=== PATIENT | female | born 1990 | race Caucasian/White ===

== ENCOUNTER → 2020-08-18 | Emergency (ER) | payer OTHER, MEDICAID ==
[~2020-08-18] VITALS: Ht 162.6 cm; Wt 102.3 kg
[~2020-08-18] MED LIST: DICLOFENAC SODI50 MG PO; PROZAC20 MG
[2020-08-18 07:20] VITALS: BP 133/89; Ht 162.6 cm; Wt 102.3 kg
[2020-08-18 07:44] LABS: HEMATOCRIT 32.9 % (36.0-48.0); HEMOGLOBIN 10.8 g/dL (12-16); MCH 28.1 pg (26.0-34.0); MCHC 32.8 g/dL (31.0-37.0); MCV 85.7 fL (80.0-100.0); MEAN PLATELET VOLUME 9.4 fL (7.4-10.4); PLATELET COUNT 270 10x3/uL (130-400); RBC 3.84 10x6/uL (4.00-5.40); RDW 13.4 % (11.5-14.5); WBC 11.3 10x3/uL (4.8-10.8)
[2020-08-18 07:52] LABS: CALC OSMOLALITY 272 mosm/kg (275-300); CALCIUM 8.7 mg/dL (8.5-10.1); CARBON DIOXIDE 23.5 mmol/L (21.0-32.0); CHLORIDE - SERUM 104 mmol/L (98-107); CREATININE - SERUM 0.6 mg/dL (0.6-1.3); GLUCOSE 102 mg/dL (74-106); POTASSIUM - SERUM 3.5 mmol/L (3.5-5.1); SODIUM 137 mmol/L (136-145); UREA NITROGEN 11 mg/dL (7-18); eGFR NON AFRICAN AMERICAN > 90 mL/min (90-120)
[2020-08-18 07:59] LABS: ALBUMIN 3.2 g/dL (3.4-5.0); ALKALINE PHOSPHATASE 74 U/L (30-120); ALT (SGPT) 18 U/L (10-68); BILIRUBIN - TOTAL 0.16 mg/dL (0.2-1.3); PROTEIN - SERUM 7.2 g/dL (6.4-8.2)
[2020-08-18 08:07] LABS: LYMPHOCYTES 23 % (15-50); MONOCYTES 2 % (2-11); NEUTROPHILS 75 % (40-80); PLATELET ESTIMATE NORMAL
--- NOTE | 2020-08-18 15:39 | NUR ---
CONTACTED DR BA FOR PT DISPOSITION ORDERS RE ADMIT V DISCHARGE STATUS. SHE WILL PUT IN CHART.
--- NOTE | 2020-08-18 16:24 | NUR ---
1602 - PT WAS HELF IN PACU FOR LACK OF ORDERS, NO REASON CODE PERTAINS
--- NOTE | 2020-08-18 19:33 | NUR ---
1732 PT'S RIDE IS HERE, RELEASED IN WC TO CAR.
--- NOTE | 2020-08-21 09:13 | OP ---
PATIENT NAME: TORI HUNT MEDICAL RECORD: [id number] :88 LOCATION:[facility] ADMISSION DATE: SURGEON: CARMEN RAE DO DATE OF OPERATION: 08/18/2020 PREOPERATIVE DIAGNOSES: Incomplete , hemorrhage. POSTOPERATIVE DIAGNOSES: Incomplete , hemorrhage. PRIMARY SURGEON: Carmen Rae DO ANESTHESIA: LMA. PROCEDURE: Dilation and curettage with suction. FINDINGS: Uterus approximately 7 cm in size, moderate products of conception, anteverted uterus, cervical os open. SPECIMENS: Products of conception. ESTIMATED BLOOD LOSS: Less than 20 mL. INTRAVENOUS FLUIDS: Per anesthesia. COMPLICATIONS: None. PROCEDURE: Risk, benefits, alternatives, and indications of the procedure were discussed with the patient prior to coming to the OR. Consent signed at bedside with RN present. She voiced understanding of the procedure. The patient was taken to the OR where anesthesia was administered without difficulty. She was prepped and draped in normal sterile fashion in dorsal lithotomy position with Naren stirrups. Exam under anesthesia revealed approximately 7 cm in size uterus anteverted with open os. A bi-valve speculum was placed into the posterior aspect of the vagina. Single-tooth tenaculum was used to grasp the anterior lip of the cervix. Cervix was already dilated. A 7 mm straight suction curette was advanced to the uterine fundus. The suction was then started. Products of conception were evacuated with the curette rotating on outward motion. A gentle sharp curettage was then performed with a small curette. The suction curettage was then reintroduced to clear the uterus. All instruments were removed from the cervix. Some bleeding at the site of tenaculum. Silver nitrate applied with good hemostasis. Minimal bleeding noted from os. All instruments were removed. The patient tolerated the procedure well. Instrument and sponge counts were correct times 2. The patient was awakened and taken to recovery room in stable condition. She will be discharged today. She will follow up in 2 weeks at [facility]. NTS:[id number] Voice Confirmation ID: [id number] DOCUMENT ID: [id number] OPERATIVE REPORT [id number] GILBERTTORI CARMEN RAE DO at 0913 CC: [id number] DICTATION DATE: 08/18/20 1517 STEAM HOIST OPERATOR: 08/19/20 0046 [facility] [address] [facility] [place] [address]
== END | disposition home or self-care (01) ==
LOC: D.ER 07:08
PROVIDERS: Emergency Medicine
DX: O03.4 Incomplete spontaneous abortion without complication (principal)

== ENCOUNTER 2021-03-23 11:24 | Emergency (ER) | payer OTHER, BC ==
[~2021-03-23] VITALS: Ht 162.6 cm; Wt 99.5 kg
[2021-03-23 11:30] VITALS: BP 123/71; Ht 162.6 cm; Wt 99.5 kg
[2021-03-23 11:50] LABS: BILIRUBIN NEGATIVE (NEGATIVE); KETONE MODERATE mg/dL (NEGATIVE); NITRITE NEGATIVE (NEGATIVE); UROBILINOGEN NORMAL mg/dL (< 2)
[2021-03-23 11:51] LABS: WHITE CELLS - URINE 0-5 HPF (0-4)
[2021-03-23 11:52] LABS: BACTERIA FEW HPF (NONE SEEN); SQUAMOUS EPITHELIAL 0-5 HPF (0-4)
[2021-03-23 11:54] LABS: BASOPHILS 0.1 % (0-2); EOSINOPHILS 1.7 % (0-7); HEMOGLOBIN 11.2 g/dL (12-16); IMMATURE GRANULOCYTES 0.4 % (0-5); LYMPHOCYTE ABS# 3.18 10x3/uL (1.18-3.74); LYMPHOCYTES 40.6 % (15-50); MCH 26.2 pg (26.0-34.0); MEAN PLATELET VOLUME 9.9 fL (7.4-10.4); MONOCYTES 8.3 % (2-11); NEUTROPHIL ABS# 3.84 10x3/uL (1.56-6.13); NEUTROPHILS 48.9 % (40-80); PLATELET COUNT 343 10x3/uL (130-400); RBC 4.27 10x6/uL (4.00-5.40); WBC 7.8 10x3/uL (4.8-10.8)
[2021-03-23 12:07] LABS: HCG SERUM POSITIVE (NEGATIVE)
[2021-03-23 12:08] LABS: CALC OSMOLALITY 271 mosm/kg (275-300); CALCIUM 9.3 mg/dL (8.5-10.1); CARBON DIOXIDE 24.2 mmol/L (21.0-32.0); CHLORIDE - SERUM 102 mmol/L (98-107); CREATININE - SERUM 0.5 mg/dL (0.6-1.3); GLUCOSE 85 mg/dL (74-106); POTASSIUM - SERUM 3.8 mmol/L (3.5-5.1); SODIUM 137 mmol/L (136-145); UREA NITROGEN 9 mg/dL (7-18); eGFR NON AFRICAN AMERICAN > 90 mL/min (90-120)
[2021-03-23 12:35] LABS: ALBUMIN 3.6 g/dL (3.4-5.0); ALKALINE PHOSPHATASE 89 U/L (30-120); ALT (SGPT) 19 U/L (10-68); HCG - QUANTITATIVE (MATERNAL) 26073 mIU/mL; PROTEIN - SERUM 7.5 g/dL (6.4-8.2)
== END 2021-03-23 15:24 | disposition home or self-care (01) ==
LOC: D.ER 11:24
PROVIDERS: Family Medicine
DX: O20.0 Threatened abortion (principal); Z3A.10 10 weeks gestation of pregnancy; D64.9 Anemia, unspecified

== ENCOUNTER 2021-03-27 02:47 | Observation (INO) | payer OTHER, MEDICAID ==
[~2021-03-27] VITALS: Ht 162.6 cm; Wt 99.5 kg
[2021-03-27 02:51] VITALS: Ht 162.6 cm; Wt 99.5 kg
[2021-03-27 03:41] LABS: BASOPHILS 0.2 % (0-2); EOSINOPHILS 1.5 % (0-7); HEMATOCRIT 32.9 % (36.0-48.0); HEMOGLOBIN 10.5 g/dL (12-16); IMMATURE GRANULOCYTES 0.3 % (0-5); LYMPHOCYTES 29.8 % (15-50); MCH 26.3 pg (26.0-34.0); MCHC 31.9 g/dL (31.0-37.0); MCV 82.3 fL (80.0-100.0); MEAN PLATELET VOLUME 9.9 fL (7.4-10.4); MONOCYTES 9.5 % (2-11); NEUTROPHIL ABS# 5.53 10x3/uL (1.56-6.13); NEUTROPHILS 58.7 % (40-80); PLATELET COUNT 323 10x3/uL (130-400); RDW 14.9 % (11.5-14.5); WBC 9.4 10x3/uL (4.8-10.8)
--- NOTE | 2021-03-27 03:42 | NUR ---
PT TO ULTRASOUND
[2021-03-27 03:52] LABS: CALC OSMOLALITY 277 mosm/kg (275-300); CALCIUM 9.2 mg/dL (8.5-10.1); CARBON DIOXIDE 25.9 mmol/L (21.0-32.0); CHLORIDE - SERUM 104 mmol/L (98-107); CREATININE - SERUM 0.6 mg/dL (0.6-1.3); GLUCOSE 97 mg/dL (74-106); POTASSIUM - SERUM 3.5 mmol/L (3.5-5.1); SODIUM 139 mmol/L (136-145); UREA NITROGEN 12 mg/dL (7-18); eGFR NON AFRICAN AMERICAN > 90 mL/min (90-120)
--- NOTE | 2021-03-27 04:16 | NUR ---
PT RETURNED FROM ULTRASOUND
[2021-03-27 04:18] LABS: ALBUMIN 3.3 g/dL (3.4-5.0); ALKALINE PHOSPHATASE 90 U/L (30-120); ALT (SGPT) 16 U/L (10-68); BILIRUBIN - TOTAL 0.16 mg/dL (0.2-1.3); HCG - QUANTITATIVE (MATERNAL) 15877 mIU/mL; PROTEIN - SERUM 7.3 g/dL (6.4-8.2)
--- NOTE | 2021-03-27 06:21 | NUR ---
ANESTHESIA AT BEDSIDE TO TAKE PT TO OR FOR PROCEDURE.
--- NOTE | 2021-03-27 08:10 | NUR ---
RECEIVED BY NATA FROM RECOVERY ROOM, PT IS AWAKE, ALERT AND ABLE TO MOVE SELF TO ROOM BED WITHOUT ASSISTANCE. RATES PAIN AT 0/10 AT THIS TIME. IV TO RIGHT AC INFUSING PER ORDERS. SCD'S BILAT PLACED ON PUMP. ABDOMEN SOFT TO TOUCH WITH BOWEL SOUNDS ACTIVE X 4. DENIES NAUSEA AND REQUEST APPLE JUICE TO DRINK. SIDE RAILS UP X 2 WITH PHONE AND CALL LIGHT IN REACH.
[2021-03-27 08:11] VITALS: BP 127/74
--- NOTE | 2021-03-27 09:15 | NUR ---
CALLED TO ROOM, PT ASKING TO GET UP TO BATHROOM. SHE IS ABLE TO SIT UP ON SIDE OF BED WITHOUT COMPLAINT OF NAUSEA OR DIZZINESS. AMB TO BATHROOM AND ABLE TO VOID WITHOUT COMPLAINT. PT PROVIDED WITH WARM WET WASH CLOTHS. REASSURED THAT SHE MAY DRESS IN HER OWN CLOTHING.
[2021-03-27] MEDS ORDERED: IBUPROFEN800 MG PO (10:57)
[2021-03-27] MEDS ORDERED: PERCOCET 5-3251 TAB PO (10:58)
--- NOTE | 2021-03-27 11:00 | NUR ---
PT CALLS FOR NURSE THIS RN TO ROOM, PT STATES THAT SHE HAS VOIDED AGAIN AND ASKING ABOUT DISCHARGE. SALINE LOCK REMOVED INTACT AT THIS TIME, EXPLAINED THAT DISCHARGE PAPERS WOULD BE PRINTED.
[2021-03-27] MEDS ORDERED: METHYLERGONOVI0.2 MG PO (11:04)
--- NOTE | 2021-03-27 11:45 | NUR ---
VERBAL AND WRITTEN DISCHARGE INSTRUCTIONS GONE OVER WITH PATIENT AND SPOUSE. ALSO PROVIDED HER WITH WRITTEN SCRIPT FOR METHERGINE 0.2MG/PERCOCET 5/325MG AND MOTRIN 800MG WITH MONOGRAPHS ON EACH MED.
--- NOTE | 2021-03-27 11:54 | NUR ---
PT ASKING FOR MOTRIN PRIOR TO DISCHARGE, EXPLAINED THAT NOT YET TIME FOR MOTRIN BUT COULD HAVE PERCOCET 5/325MG WHICH SHE IS AGREEABLE TO BUT ASK FOR CRACKERS SO THAT SHE DOES NOT GET SICK. LASHAE LEIGH PROVIDED. MEDS GIVEN SCANNED TO EMAR.
--- NOTE | 2021-03-27 12:08 | NUR ---
RATES PAIN AT 1/10, TAKEN OUT BY WHEELCHAIR, HOME WITH SPOUSE BY PRIVATE CAR.
--- NOTE | 2021-03-29 13:00 | OP ---
PATIENT NAME: TORI HUNT MEDICAL RECORD: [id number] :88 LOCATION:[facility] ADMISSION DATE:03/27/21 SURGEON: KATT RAE DO DATE OF OPERATION: 03/27/2021 PREOPERATIVE DIAGNOSIS: Incomplete . POSTOPERATIVE DIAGNOSIS: Incomplete . PRIMARY SURGEON: Katt Rae MD ANESTHESIA: LMA. PROCEDURE: D&C with suction. FINDINGS: Small amount of products of conception. SPECIMENS: Products of conception. ESTIMATED BLOOD LOSS: 20 cc. IV FLUIDS: Per anesthesia URINE OUTPUT: 100 cc clear yellow urine with red rubber. INFECTION PROPHYLAXIS : 200 mg doxycycline. COMPLICATIONS: None. INDICATION: The patient was seen in ED, noted to have incomplete AB. Expectant versus surgical management reviewed. Risks of surgical management including bleeding, pain, infection, damage to surrounding structures such as bowel, bladder, neurovascular structures, uterine perforation, risk of VTE and reoperation and scar tissue discussed with the patient. The patient desiring surgical intervention. Consent signed. DESCRIPTION OF PROCEDURE: The patient taken to the operating room where anesthesia was administered and found to be adequate. She was prepped and draped in normal sterile fashion in dorsal lithotomy position. A speculum was placed into the vagina. Anterior lip of the cervix was grasped with tenaculum. Cervix was already dilated 1 cm, slightly dilated further to accommodate a small sharp curette. Curettage was performed in a clockwise fashion gently and then a 7 cm curved curette, which was the smalled available currette for suction, placed and gentle curettage with suction occurred. Instrument removed and then a small sharp curette was utilized again and then suction curettage was used one more time. Suction then removed, bleeding at os minimal. Tenaculum removed. Silver nitrate applied with good hemostasis. Instruments were then removed. Lap, needle and instrument counts correct times 2. The patient was awakened and taken to recovery room in stable condition. TRANSINT:[id number] Voice Confirmation ID: [id number] DOCUMENT ID: [id number] OPERATIVE REPORT [id number] TORI HUNT KATT RAE DO at 1300 CC: [id number] DICTATION DATE: 03/28/212017 ASSOCIATE PROFESSOR OF LITERATURE: 03/29/21 0018 DIS IN 03/27/21 [facility] [address] [facility] [place] [address]
== END 2021-03-27 12:08 | disposition home or self-care (01) ==
LOC: D.ER 02:47 → D.LD 08:10 → D.ER 08:48 → D.LD 09:52 → OBSVTIME 09:52 → D.LD 12:08
PROVIDERS: Emergency Medicine; ADMIT Obstetrics & Gynecology; ATTEND Obstetrics & Gynecology
DX: O03.4 Incomplete spontaneous abortion without complication (principal); D50.9 Iron deficiency anemia, unspecified; K58.9 Irritable bowel syndrome, unspecified; F32.81 Premenstrual dysphoric disorder